=== PATIENT | female | born 1930 | race Caucasian/White ===

== ENCOUNTER 2016-06-14 18:52 | Emergency (ER) | payer MEDICARE, OTHER ==
--- NOTE | ~2016-06-14 | CR72 ---
[facility]. [facility] A Service of [facility] & [facility] RADIOLOGY TEXT RESULTS PATIENT: JACKELIN MCALLISTER LOCATION: SED : [birth year] UNIT #: [id number] AGE: [address]: Tr Sharma DO SEX: F ORDER DR: [id number] [address] [address] [id number] E MR#: [id number] Acc #: [id number] NAME: JACKELIN MCALLISTER : 1930 SEX: F STUDY DATE/TIME: 06/14/2016 19:04 UNIT: SED ROOM: STUDY DESCRIPTION: CR Chest Single View Portable Attending Physician: Tr Sharma D.O. Referring Physician: Ludwig Levy M.D. Ordering Physician: Ludwig Levy M.D. Primary Care Physician: Ifrah Castillo M.D. MEDICAL IMAGING REPORT This report is preliminary unless electronic signature is present. EXAM Single view chest INDICATION Cough and wheezing. FINDINGS Single portable AP view of the chest compared to 03/22/2014. The heart is at the upper limits of normal in size. No new pulmonary opacities. No pleural effusion. IMPRESSION No acute cardiopulmonary findings or significant interval change. Dictated by... Dick Edgar M.D. THIS IS AN ELECTRONICALLY VERIFIED REPORT Dick Edgar M.D. at 06/15/2016 3:18 PM LIS/juan diego TD: 06/14/2016 23:19 JOB #: [id number] MEDICAL IMAGING REPORT Page 1 of 1
[~2016-06-14 18:52] MED LIST: AGGRENOX PO; ALBUTEROL17 GM INH; ALEVE; ALLEGRA; ALLEGRA PO; ALLEGRA180 MG PO; ARICEPT PO; ARICEPT5 M1 PO; BROM/PSEUD/DM473 ML PO; CALCIUM + D 6001 TA1 PO; CALCIUM 500 + D1 TAB PO; COMBIVENT MININEB; DARVOCET-N 1001 TAB PO; FISH OIL; FISH OIL 1,0001 CAP; FISH OIL 1,001000 MG PO; FISH OIL PO; FLAGYL PO; FRESHKOTE15 ML; GARLIC PO; GARLIC1000 MG PO; GAS RELIEF125 M1; GLUCOPHAGE XR500 MG PO; GLUCOTROL PO; IRON; IRON PO; JANUVIA50 MG; KEFLEX500 M1 PO; KLONOPIN; LAMICTAL PO; LIPITOR40 MG PO; LISINOPRIL PO; METFORMIN; MICARDIS40 MG PO; MOBIC PO; MOBIC15 MG PO; MUCINEX100 MG; MULTI-VITAMIN1 TAB PO; MYCARDIS PO; NATURAL VITA400 UNI2 PO; NEURONTIN100 MG PO; NEXIUM PO; NORVASC10 MG; OCUVITE TABLET1 TA1; OMEGA 3; OMEGA 3 FISH OI1 CAP PO; OMEGA 3 PO; ONE A DAY VITAMIN; ONE DAILY1 TA1; PAXIL; PAXIL PO; PAXIL40 MG PO; PERCOCET7.5 PO; PREDNISONE; PREDNISONE PO; PRILOSEC; REQUIP0.5 MG PO; RESTASIS32 EA; RESTASIS32 EA OP; SINGULAIR PO; TRICOR145 MG PO; VIT E; VIT E PO; ZITHROMAX; ZITHROMAX PO; ZOCOR PO; [UNRECOGNIZED DRUG - OTHER]; [UNRECOGNIZED DRUG - OTHER] PO; [UNRECOGNIZED DRUG - OTHER] PO
[2016-06-14 19:25] LABS: BASOPHIL% 0.3 % (0-2.5); EOSINOPHIL# 0.1 X10e3 (0-0.7); EOSINOPHIL% 0.6 % (0.0-7.0); HEMATOCRIT 28.7 % (35.0-45.0); HEMOGLOBIN 9.7 gm/dL (12.0-16.0); LYMPHOCYTE# 0.9 X10e3 (1.0-3.5); LYMPHOCYTE% 8.1 % (17.0-45.0); MEAN CELL VOLUME 96.9 FL (83-96); MEAN CORPUSCULAR HEMOGLOBIN 32.6 PG (28-34); MEAN CORPUSCULAR HGB CONC 33.7 g/dL (30-36); MEAN PLATELET VOLUME 8.8 FL (6.5-11.5); MONOCYTE# 0.3 X10e3 (0-1.0); MONOCYTE% 2.5 % (3.0-12.0); NEUTROPHIL# 9.6 X10e3 (1.5-7.1); NEUTROPHIL% 88.5 % (40-75); PLATELET COUNT 291 X10e3 (140-420); RED BLOOD COUNT 2.97 X10e (3.90-5.30); RED CELL DISTRIBUTION WIDTH 13.7 % (11.0-15.5); WHITE BLOOD COUNT 10.9 X10e3 (4.0-10.5)
[2016-06-14 19:27] LABS: DIFF IND NO
[2016-06-14 19:39] LABS: POC - CKMB 1.3 ng/mL (0.0-7.9); POC - TROPONIN <0.05 ng/mL (<=0.05)
[2016-06-14 19:40] LABS: INFLUENZA A NEG (NEG); INFLUENZA B NEG (NEG)
[2016-06-14 19:44] LABS: ALBUMIN SERUM 3.6 g/dL (3.5-5.0); BILIRUBIN, DIRECT 0.1 mg/dL (0.0-0.2); BILIRUBIN,INDIRECT 0.2 mg/dL (0.0-0.9); BILIRUBIN,TOTAL 0.3 mg/dL (0.2-2.0); BUN/CREATININE RATIO 24.5; CALCIUM SERUM 8.8 mg/dL (8.4-10.2); GLOM FILT RATE Estimated 21.9 mL/min (>60); POTASSIUM 5.1 mmol/L (3.5-5.1); PROTEIN TOTAL SERUM 6.1 g/dL (6.0-8.3)
== END 2016-06-15 01:25 ==
LOC: SED 18:52
PROVIDERS: Emergency Medicine
DX: J44.1 Chronic obstructive pulmonary disease with (acute) exacerbation (principal); E78.5 Hyperlipidemia, unspecified; E11.9 Type 2 diabetes mellitus without complications; K21.9 Gastro-esophageal reflux disease without esophagitis; Z90.49 Acquired absence of other specified parts of digestive tract; Z90.710 Acquired absence of both cervix and uterus; Z98.890 Other specified postprocedural states
CPT/HCPCS: 36415; 71010; 80048; 80076; 82553; 83874; 83880; 84484; 85025; 87804; 94640; 96374; 99285; J1100

== ENCOUNTER → 2016-07-02 | Outpatient (CLI) | payer MEDICARE, OTHER ==
--- NOTE | ~2016-07-02 | CR63 ---
[facility]. [facility] A Service of [facility] & [facility] RADIOLOGY TEXT RESULTS PATIENT: JACKELIN MCALLISTER LOCATION: [facility] : [birth year] UNIT #: [id number] AGE: [address]: Ifrah Castillo MD SEX: F ORDER DR: [id number] [address] [address] [id number] O MR#: [id number] Acc #: [id number] NAME: JACKELIN MCALLISTER : 1930 SEX: F STUDY DATE/TIME: 07/02/2016 14:00 UNIT: [facility] ROOM: STUDY DESCRIPTION: CR Chest 2 View Attending Physician: Ifrah Castillo M.D. Referring Physician: Ifrah Castillo M.D. Ordering Physician: Ifrah Castillo M.D. Primary Care Physician: Ifrah Castillo M.D. MEDICAL IMAGING REPORT This report is preliminary unless electronic signature is present. EXAM Chest PA and lateral HISTORY Chronic bronchitis, cough for 1 month. FINDINGS PA and lateral views of the chest are obtained. Heart size is enlarged, but unchanged from study of 06/14/2016. Vascular pattern of the chest is stable. Chronic-appearing blunting of the left costophrenic angle. No obvious pleural fluid is seen. There are atherosclerotic calcifications in the aorta. CONCLUSION Cardiomegaly. No evidence of acute cardiac decompensation. No acute infiltrates identified. Dictated by... Leopoldo Castle M.D. THIS IS AN ELECTRONICALLY VERIFIED REPORT Leopoldo Castle M.D. at 07/04/2016 7:19 AM LASHAE/sarah beth TD: 07/02/2016 18:49 JOB #: [id number] MEDICAL IMAGING REPORT Page 1 of 1
== END | disposition home or self-care (01) ==
LOC: SRAD 13:44
DX: J42 Unspecified chronic bronchitis (principal); I51.7 Cardiomegaly
CPT/HCPCS: 71020

== ENCOUNTER → 2016-07-09 | Outpatient (CLI) | payer MEDICARE, OTHER ==
--- NOTE | ~2016-07-09 | MY11 ---
[facility] A Service of [facility] RADIOLOGY TEXT RESULTS PATIENT: JACKELIN MCALLISTER LOCATION: [facility] : [birth year] UNIT #: [id number] AGE: [address]: Ifrah Castillo MD SEX: F ORDER DR: [id number] [address] [address] [id number] O MR#: [id number] Acc #: [id number] NAME: JACKELIN MCALLISTER : 1930 SEX: F STUDY DATE/TIME: 07/09/2016 11:12 UNIT: [facility] ROOM: STUDY DESCRIPTION: MY Mammogram Screening Dig Adam Attending Physician: Ifrah Castillo M.D. Referring Physician: Ifrah Castillo M.D. Ordering Physician: Ifrah Castillo M.D. Primary Care Physician: Ifrah Castillo M.D. MEDICAL IMAGING REPORT This report is preliminary unless electronic signature is present. EXAM Bilateral digital screening mammogram with CAD, 07/09/2016. INDICATION 85-year-old female for routine screening. No reported problems. No personal or family history of breast cancer. No surgeries. TECHNIQUE CC and MLO views of the breast were obtained and reviewed with an FDA-approved CAD device. COMPARISON 06/27/2015, 05/21/2014, 05/05/2013 FINDINGS Breast parenchyma is composed of scattered fibroglandular densities. The pattern is unchanged. There is no new dominant nodule, mass, or suspicious cluster of microcalcifications. Faint benign calcifications are present. IMPRESSION Benign screening mammogram. 1 year followup recommended. Patients over the age of 40 are entered into a reminder system with target due date for the next mammogram. A result letter will also be sent to the patient. BIRADS: 2 Benign finding. Dictated by... [facility] A Service of [facility] RADIOLOGY TEXT RESULTS PATIENT: JACKELIN MCALLISTER LOCATION: [facility] : [birth year] UNIT #: [id number] AGE: [address]: Ifrah Castillo MD SEX: F ORDER DR: Ludwig Pitts M.D. THIS IS AN ELECTRONICALLY VERIFIED REPORT Ludwig Pitts M.D. at 07/09/2016 4:59 PM SERENITY/carissa TD: 07/09/2016 11:43 JOB #: [id number] MEDICAL IMAGING REPORT Page 1 of 1
== END | disposition home or self-care (01) ==
LOC: SRAD 10:29
DX: Z12.31 Encounter for screening mammogram for malignant neoplasm of breast (principal)
CPT/HCPCS: G0202

== ENCOUNTER → 2016-09-04 | Outpatient (CLI) | payer MEDICARE, OTHER ==
--- NOTE | ~2016-09-04 | US77 ---
[facility] A Service of [facility] RADIOLOGY TEXT RESULTS PATIENT: JACKELIN MCALLISTER LOCATION: [facility] : [birth year] UNIT #: [id number] AGE: [address]: Ifrah Castillo MD SEX: F ORDER DR: [id number] [address] [address] [id number] O MR#: [id number] Acc #: [id number] NAME: JACKELIN MCALLISTER. : 1930 SEX: F STUDY DATE/TIME: 09/04/2016 12:55 UNIT: [facility] ROOM: STUDY DESCRIPTION: US Kidney Bilateral Complete Attending Physician: Ifrah Castillo M.D. Referring Physician: Ifrah Castillo M.D. Ordering Physician: Ifrah Castillo M.D. Primary Care Physician: Ifrah Castillo M.D. MEDICAL IMAGING REPORT This report is preliminary unless electronic signature is present. EXAM Renal ultrasound INDICATIONS Chronic kidney disease stage 2 TECHNIQUE Younger-scale and color Doppler sonographic images were obtained from the bladder. FINDINGS Right kidney measures 10.8 x 4.8 x 5.5 cm. There is no evidence of hydronephrosis and no solid or cystic masses are seen. Images of the left kidney are extremely limited due to overlying rib shadow, no hydronephrosis is identified. Left kidney measures 10 x 4.5 x 6.1 cm. There is a hyperechoic focus identified within the bladder. I do not see it associated with any shadowing. Exact etiology is uncertain. Urinary stone is not excluded. Further evaluation with unenhanced CT of the abdomen and pelvis could be considered for additional characterization. IMPRESSION 1. Kidneys are grossly normal in appearance, although the left kidney is poorly visualized. 1. High Worker denotes a hyperechoic focus within the bladder. It does not appear to be associated with any shadowing but a stone is not completely excluded. This could be further assessed with unenhanced CT of the abdomen and pelvis. Dictated by... [facility] A Service of [facility] & [facility] RADIOLOGY TEXT RESULTS PATIENT: JACKELIN MCALLISTER LOCATION: [facility] : [birth year] UNIT #: [id number] AGE: [address]: Ifrah Castillo MD SEX: F ORDER DR: Jessica Tomlin M.D. THIS IS AN ELECTRONICALLY VERIFIED REPORT Jessica Tomlin M.D. at 09/07/2016 2:47 PM AFF/pcl TD: 09/06/2016 23:12 JOB #: [id number] MEDICAL IMAGING REPORT Page 1 of 1
[2016-09-04 13:36] LABS: URINE APPEARANCE CLEAR; URINE BILIRUBIN NEG (NEG); URINE BLOOD NEG (NEG); URINE COLOR YELLOW; URINE GLUCOSE NEG (NORM); URINE KETONE NEG (NEG); URINE LEUKOCYTE ESTERASE NEG (NEG); URINE NITRATE NEG (NEG); URINE PROTEIN 2+ (NEG); URINE SPECIFIC GRAVITY 1.025 (1.003-1.035); URINE UROBILINOGEN 0.2 MG/DL (NORM)
[2016-09-04 13:38] LABS: MICRO INDICATED? YES
[2016-09-04 13:46] LABS: URINE BACTERIA NEG (NEG); URINE RBC NEG /[HPF] (0-2); URINE SQUAMOUS EPITHELIAL CELL FEW /[HPF]; URINE WBC NEG /[HPF] (0-5)
[2016-09-04 13:47] LABS: URINE MUCUS PRESENT
[2016-09-04 14:23] LABS: BUN/CREATININE RATIO 17.77; CALCIUM SERUM 8.5 mg/dL (8.4-10.2); CREATININE SERUM 1.8 mg/dL (0.6-1.4); GLOM FILT RATE Estimated 24.7 mL/min (>60); POTASSIUM 4.4 mmol/L (3.5-5.1)
== END | disposition home or self-care (01) ==
LOC: SGUS 12:35 → SLAB 12:35 → SGUS 13:00
PROVIDERS: Internal Medicine
DX: N18.2 Chronic kidney disease, stage 2 (mild) (principal)
CPT/HCPCS: 36415; 76775; 80048; 81003

== ENCOUNTER → 2016-09-27 | Outpatient (CLI) | payer MEDICARE, OTHER ==
--- NOTE | ~2016-09-27 | CT4 ---
[facility] A Service of [facility] & [facility] RADIOLOGY TEXT RESULTS PATIENT: JACKELIN MCALLISTER LOCATION: [facility] : [birth year] UNIT #: [id number] AGE: [address]: Ifrah Castillo MD SEX: F ORDER DR: [id number] [address] [address] [id number] O MR#: [id number] Acc #: [id number] NAME: JACKELIN MCALLISTER : 1930 SEX: F STUDY DATE/TIME: 09/27/2016 11:25 UNIT: [facility] ROOM: STUDY DESCRIPTION: CT Abd and Pelv Wo Cont Attending Physician: Ifrah Castillo M.D. Referring Physician: Ifrah Castillo M.D. Ordering Physician: Ifrah Castillo M.D. Primary Care Physician: Ifrah Castillo M.D. MEDICAL IMAGING REPORT This report is preliminary unless electronic signature is present. EXAM CT scan abdomen and pelvis without contrast INDICATION A questionable bladder lesion shown on ultrasound. CT was performed for further evaluation. TECHNIQUE CT scanning of the abdomen and pelvis was performed without contrast. Coronal and sagittal reformatted images were obtained. This CT exam was performed with one or more of the following radiation dose reduction techniques: Automatic exposure control, adjustment of mA and/or kV according to patient size, and iterative reconstruction. COMPARISON Comparison is made with ultrasound from 09/04/[address] of the abdomen and pelvis from 03/21/2016. FINDINGS There is a stable 6 mm nodule in the base of the left lower lobe. There are cysts within the kidney. Cholecystectomy. The spleen is unremarkable. The kidneys are unremarkable. The adrenal glands and pancreas are unremarkable. 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 The urinary bladder has an unremarkable, unenhanced appearance. Hysterectomy. There is some diverticulosis involving the residual rectosigmoid. Stable prominent retroperitoneal lymph nodes which are nonspecific but may be reactive. There is no free fluid. Bone windows demonstrate degenerative changes of the lumbar spine. IMPRESSION 1. The urinary bladder has a normal unenhanced appearance. STS. [facility] A Service of [facility] & [facility] RADIOLOGY TEXT RESULTS PATIENT: JACKELIN MCALLISTER LOCATION: [facility] : [birth year] UNIT #: [id number] AGE: [address]: Ifrah Castillo MD SEX: F ORDER DR: 2. 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 3. Cholecystectomy. 4. Additional findings as described above. Dictated by... Ross Oviedo M.D. THIS IS AN ELECTRONICALLY VERIFIED REPORT Ross Oviedo M.D. at 09/28/2016 3:50 PM JB/arthur TD: 09/28/2016 12:30 JOB #: [id number] MEDICAL IMAGING REPORT Page 1 of 1
== END | disposition home or self-care (01) ==
LOC: SCT 11:07
DX: N32.89 Other specified disorders of bladder (principal); K57.30 Diverticulosis of large intestine without perforation or abscess without bleeding; M47.896 Other spondylosis, lumbar region; Z93.3 Colostomy status; Z90.49 Acquired absence of other specified parts of digestive tract
CPT/HCPCS: 74176